=== PATIENT | female | born 2005 | race Caucasian/White ===

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

== ENCOUNTER → 2023-06-25 | Outpatient (REF) | payer BC ==
[~2023-06-25] MED LIST changes: +COLA100C5 PO; +IBUP80TA PO; +OXYC1TAB23 PO
== END ==
LOC: M LAB REF 16:24
PROVIDERS: ATTEND Student in an Organized Health Care Education/Training Program
DX: R30.0 Dysuria (principal)

== ENCOUNTER → 2023-11-01 | Outpatient (CLI) | payer BC, OTHER ==
[2023-11-01 13:54] LABS: HEMATOCRIT 39.8 % (36.0-47.0); HEMOGLOBIN 13.6 g/dl (12.0-15.5); MEAN CORPUSCULAR HGB CONC 34.2 g/dl (32.0-36.5); MEAN CORPUSCULAR VOLUME 93.6 fl (80.0-96.0); PLATELET COUNT, AUTOMATED 334 10^3/uL (150-450); RED BLOOD COUNT 4.25 10^6/uL (4.00-5.40); WHITE BLOOD COUNT 8.8 10^3/uL (4.0-10.0)
[2023-11-01 14:04] LABS: TOTAL PROTEIN,RANDOM URINE 27.8 MG/DL (0.0-14.0)
[2023-11-01 14:06] LABS: URIC ACID 4.3 MG/DL (3.1-7.8)
[2023-11-01 14:09] LABS: CREATININE,RANDOM URINE 219.3 MG/DL; LDH LACTATE DEHYDROGENASE 141 U/L (120-246)
[2023-11-01 14:10] LABS: ALT/SGPT 17 U/L (7.0-40); AST/SGOT 12 U/L (<34); BILIRUBIN,TOTAL 0.4 MG/DL (0.3-1.2); CREATININE FOR GFR 0.49 MG/DL (0.55-1.30)
[2023-11-01 14:42] LABS: HIV 1&2 SCREEN NEGATIVE (NEGATIVE)
[2023-11-01 14:51] LABS: HEPATITIS C VIRUS ABY INDEX 0.03 INDEX (<0.8)
== END ==
LOC: M PLALAB 11:22
PROVIDERS: ATTEND Advanced Practice Midwife
DX: Z34.81 Encounter for supervision of other normal pregnancy, first trimester (principal)

== ENCOUNTER → 2023-11-22 | Outpatient (CLI) | payer BC, OTHER | LOC: M PLALAB 09:30 | PROVIDERS: ATTEND Advanced Practice Midwife | DX: Z34.92 Encounter for supervision of normal pregnancy, unspecified, second trimester (principal) ==

== ENCOUNTER → 2023-12-20 | Outpatient (REF) | payer BC, OTHER ==
[~2023-12-20] MED LIST changes: +LABE100T40 PO; -LABE100T71 PO
== END ==
LOC: M SFHCWAGY 10:06
PROVIDERS: ATTEND Advanced Practice Midwife
DX: Z34.82 Encounter for supervision of other normal pregnancy, second trimester (principal)

== ENCOUNTER → 2023-12-31 | Outpatient (CLI) | payer BC, OTHER | LOC: M WHC 13:40 | PROVIDERS: ATTEND Advanced Practice Midwife | DX: Z34.92 Encounter for supervision of normal pregnancy, unspecified, second trimester (principal) ==

== ENCOUNTER → 2024-01-08 | Outpatient (REF) | payer BC, OTHER ==
[2024-01-08 17:10] LABS: APPEARANCE, URINE CLEAR (CLEAR); BACTERIA, URINE AUTO 2+ (NEGATIVE); BILIRUBIN, URINE AUTO NEGATIVE (NEGATIVE); BLOOD, URINE BLOOD NEGATIVE (NEGATIVE); COLOR, URINE STRAW (YELLOW); GLUCOSE, URINE (UA) AUTO NEGATIVE (NEGATIVE); KETONE, URINE AUTO NEGATIVE (NEGATIVE); LEUKOCYTE ESTERASE, URINE AUTO NEGATIVE (NEGATIVE); NITRITE, URINE AUTO NEGATIVE (NEGATIVE); PROTEIN, URINE AUTO NEGATIVE (NEGATIVE); RBC, URINE AUTO 0 /HPF (0-3); SPECIFIC GRAVITY URINE AUTO 1.005 (1.002-1.035); SQUAMOUS EPITHELIAL CELL UR AU 3 /HPF (0-6); UROBILINOGEN, URINE AUTO 0.2 mg/dL (0.0-2.0); WBC, URINE AUTO 0 /HPF (0-3)
== END ==
LOC: M LAB REF 16:32
PROVIDERS: ATTEND Physician Assistant
DX: N39.0 Urinary tract infection, site not specified (principal)

== ENCOUNTER → 2024-02-11 | Outpatient (CLI) | payer BC, OTHER | LOC: M WHC 07:41 | PROVIDERS: ATTEND Obstetrics & Gynecology | DX: O34.211 Maternal care for low transverse scar from previous cesarean delivery (principal) ==

== ENCOUNTER → 2024-02-19 | Outpatient (CLI) | payer BC, OTHER ==
[2024-02-19 13:47] LABS: HEMATOCRIT 33.6 % (36.0-47.0); HEMOGLOBIN 11.1 g/dl (12.0-15.5); MEAN CORPUSCULAR HEMOGLOBIN 32.4 pg (27.0-33.0); PLATELET COUNT, AUTOMATED 273 10^3/uL (150-450); RED BLOOD COUNT 3.43 10^6/uL (4.00-5.40)
[2024-02-19 15:15] LABS: GC DNA AMPLIFICATION NEGATIVE (NEGATIVE)
== END ==
LOC: M PLALAB 08:55
PROVIDERS: ATTEND Obstetrics & Gynecology
DX: O34.211 Maternal care for low transverse scar from previous cesarean delivery (principal)

== ENCOUNTER 2024-03-05 13:38 | Outpatient (CLI) | payer BC, OTHER ==
[~2024-03-05] VITALS: Ht 165.1 cm; Wt 102.9 kg
[2024-03-05 13:55] VITALS: BP 132/73
[2024-03-05] MEDS ORDERED: TUMS500C PO (13:58)
[2024-03-05] MEDS ORDERED: ASPI81CH33 PO (13:58)
[2024-03-05] MEDS ORDERED: ACET500P3 PO (13:58)
[2024-03-05 14:35] LABS: HEMATOCRIT 30.7 % (36.0-47.0); HEMOGLOBIN 10.5 g/dl (12.0-15.5); MEAN CORPUSCULAR HEMOGLOBIN 32.2 pg (27.0-33.0); MEAN CORPUSCULAR HGB CONC 34.2 g/dl (32.0-36.5); MEAN CORPUSCULAR VOLUME 94.2 fl (80.0-96.0); PLATELET COUNT, AUTOMATED 256 10^3/uL (150-450); RED BLOOD COUNT 3.26 10^6/uL (4.00-5.40); WHITE BLOOD COUNT 7.8 10^3/uL (4.0-10.0)
[2024-03-05 14:59] LABS: TOTAL PROTEIN,RANDOM URINE 10.2 MG/DL (0.0-14.0)
[2024-03-05 15:02] LABS: LIPASE 37 U/L (12-53)
[2024-03-05 15:03] LABS: AMYLASE 57 U/L (30-118)
[2024-03-05 15:04] LABS: CREATININE,RANDOM URINE 50.3 MG/DL
[2024-03-05 15:04] LABS: ALBUMIN 2.7 G/DL (3.2-5.2); ALKALINE PHOSPHATASE 96 U/L (46-116); ALT/SGPT 14 U/L (7.0-40); AST/SGOT 9 U/L (<34); BILIRUBIN,TOTAL 0.2 MG/DL (0.3-1.2); BLOOD UREA NITROGEN 8 MG/DL (9-23); CALCIUM LEVEL 8.4 MG/DL (8.5-10.1); CARBON DIOXIDE LEVEL 23 MMOL/L (20-31); CHLORIDE LEVEL 109 MMOL/L (98-107); CREATININE FOR GFR 0.47 MG/DL (0.55-1.30); GLUCOSE, FASTING 85 MG/DL (60-100); POTASSIUM SERUM 3.3 MMOL/L (3.5-5.1); SODIUM LEVEL 140 MMOL/L (136-145)
== END 2024-03-05 15:25 | disposition home or self-care (01) ==
LOC: M LDO 13:38
PROVIDERS: ATTEND Advanced Practice Midwife
DX: O26.893 Other specified pregnancy related conditions, third trimester (principal); O34.219 Maternal care for unspecified type scar from previous cesarean delivery; R10.11 Right upper quadrant pain; Z87.59 Personal history of other complications of pregnancy, childbirth and the puerperium; Z86.32 Personal history of gestational diabetes; Z3A.29 29 weeks gestation of pregnancy
CPT/HCPCS: 36415; 59025; 80053; 82150; 82570; 83690; 84156; 85027; G0463

== ENCOUNTER 2024-04-15 10:37 | Emergency (ER) | payer BC, OTHER ==
[2022-08-16 06:00] VITALS: O2SAT 98
[~2024-04-15 10:37] MED LIST changes: +ACET500P3 PO; +ASPI81CH33 PO; +ONDA-282 PO; -ONDA4TAB6 PO; +TUMS500C PO
[2024-04-15 10:38] VITALS: BP 173/93; TEMP 97.8
[2024-04-15] MEDS ORDERED: ACE65ERTAB PO (10:46)
== END 2024-04-15 10:47 | disposition admitted as inpatient to this hospital (09) ==
LOC: M ED 10:37
DX: Z53.21 Procedure and treatment not carried out due to patient leaving prior to being seen by health care provider (principal)

== ENCOUNTER 2024-04-15 11:05 | Outpatient (CLI) | payer BC, OTHER ==
[~2024-04-15] VITALS: Ht 165.1 cm; Wt 104.8 kg
[~2024-04-15 11:05] MED LIST changes: +ACE65ERTAB PO
[2024-04-15 11:32] VITALS: BP 131/83
[2024-04-15 13:01] VITALS: BP 112/62
[2024-04-15] MEDS ORDERED: HOME MED LIST COMPLETE! XX SCH (13:25)
[2024-04-15 13:26] LABS: HEMATOCRIT 28.5 % (36.0-47.0); HEMOGLOBIN 9.7 g/dl (12.0-15.5); MEAN CORPUSCULAR HEMOGLOBIN 32.4 pg (27.0-33.0); MEAN CORPUSCULAR VOLUME 95.3 fl (80.0-96.0); PLATELET COUNT, AUTOMATED 239 10^3/uL (150-450); RED BLOOD COUNT 2.99 10^6/uL (4.00-5.40); WHITE BLOOD COUNT 8.4 10^3/uL (4.0-10.0)
[2024-04-15 13:37] LABS: TOTAL PROTEIN,RANDOM URINE 23.4 MG/DL (0.0-14.0)
[2024-04-15 13:43] LABS: CREATININE,RANDOM URINE 77.6 MG/DL
[2024-04-15] MEDS: diphenhydrAMINE 25MG CAP PO ONE (13:55)
[2024-04-15] MEDS: METOCLOPRAMIDE 10MG TAB PO ONE (13:55)
[2024-04-15 14:12] VITALS: BP 116/63
[2024-04-15 14:21] LABS: ALT/SGPT 12 U/L (7.0-40); AST/SGOT 9 U/L (<34); BILIRUBIN,TOTAL 0.2 MG/DL (0.3-1.2); CREATININE FOR GFR 0.47 MG/DL (0.55-1.30); LDH LACTATE DEHYDROGENASE 145 U/L (120-246)
[2024-04-15 14:40] VITALS: BP 126/76
[2024-04-15 14:56] VITALS: BP 137/86
== END 2024-04-15 15:15 | disposition home or self-care (01) ==
LOC: M LDO 11:05
PROVIDERS: ATTEND Obstetrics & Gynecology
DX: O26.893 Other specified pregnancy related conditions, third trimester (principal); O34.219 Maternal care for unspecified type scar from previous cesarean delivery; R51.9 Headache, unspecified; R10.11 Right upper quadrant pain; Z3A.35 35 weeks gestation of pregnancy; Z88.1 Allergy status to other antibiotic agents; Z88.2 Allergy status to sulfonamides; Z86.32 Personal history of gestational diabetes; Z87.59 Personal history of other complications of pregnancy, childbirth and the puerperium
CPT/HCPCS: 36415; 59025; 82247; 82570; 83615; 84156; 84450; 84460; 84550; 85027; G0463

== ENCOUNTER 2024-04-16 14:11 | Outpatient (CLI) | payer BC, OTHER ==
[~2024-04-16] VITALS: Ht 165.1 cm; Wt 105.1 kg
[2024-04-16] VITALS (8 sets, daily range): BP systolic 122–141; BP diastolic 72–88
[2024-04-16] MEDS ORDERED: HOME MED LIST COMPLETE! XX SCH (14:25)
[2024-04-16 15:07] LABS: TOTAL PROTEIN,RANDOM URINE 12.2 MG/DL (0.0-14.0)
[2024-04-16] MEDS: diphenhydrAMINE 50MG CAP PO ONE (15:07)
[2024-04-16] MEDS: METOCLOPRAMIDE 10MG TAB PO ONE (15:07)
[2024-04-16] MEDS: BETAMETHASONE SOLUSPAN 6MG/ML 5ML VIAL IM SCH (15:07)
[2024-04-16 15:10] LABS: HEMATOCRIT 30.5 % (36.0-47.0); HEMOGLOBIN 10.3 g/dl (12.0-15.5); MEAN CORPUSCULAR HEMOGLOBIN 32.3 pg (27.0-33.0); MEAN CORPUSCULAR HGB CONC 33.8 g/dl (32.0-36.5); MEAN CORPUSCULAR VOLUME 95.6 fl (80.0-96.0); PLATELET COUNT, AUTOMATED 235 10^3/uL (150-450); RED BLOOD COUNT 3.19 10^6/uL (4.00-5.40); WHITE BLOOD COUNT 9.2 10^3/uL (4.0-10.0)
[2024-04-16 15:12] LABS: CREATININE,RANDOM URINE 43.1 MG/DL
[2024-04-16 15:34] LABS: URIC ACID 4.1 MG/DL (3.1-7.8)
[2024-04-16 15:36] LABS: LDH LACTATE DEHYDROGENASE 155 U/L (120-246)
[2024-04-16 15:37] LABS: ALT/SGPT 11 U/L (7.0-40); AST/SGOT 8 U/L (<34); BILIRUBIN,TOTAL 0.3 MG/DL (0.3-1.2); CREATININE FOR GFR 0.52 MG/DL (0.55-1.30)
[2024-04-16] MEDS: FIORICET TAB PO ONE (15:58)
== END 2024-04-16 16:30 | disposition home or self-care (01) ==
LOC: M LDO 14:11
PROVIDERS: ATTEND Advanced Practice Midwife
DX: O13.3 Gestational [pregnancy-induced] hypertension without significant proteinuria, third trimester (principal); O26.893 Other specified pregnancy related conditions, third trimester; R51.0 Headache with orthostatic component, not elsewhere classified; Z87.59 Personal history of other complications of pregnancy, childbirth and the puerperium; Z3A.35 35 weeks gestation of pregnancy; Z88.1 Allergy status to other antibiotic agents; Z88.2 Allergy status to sulfonamides
CPT/HCPCS: 36415; 59025; 82247; 82570; 83615; 84156; 84450; 84460; 84550; 85027; 96372; G0463; J0702

== ENCOUNTER 2024-04-17 15:01 | Outpatient (CLI) | payer BC, OTHER ==
[~2024-04-17] VITALS: Ht 165.1 cm; Wt 105.5 kg
[2024-04-17] MEDS ORDERED: HOME MED LIST COMPLETE! XX SCH (15:15)
[2024-04-17 15:16] VITALS: BP 131/84
[2024-04-17] MEDS: BETAMETHASONE SOLUSPAN 6MG/ML 5ML VIAL IM ONE (15:30)
[2024-04-17 15:47] VITALS: BP 140/86
[2024-04-17 16:04] VITALS: BP 153/95
== END 2024-04-17 16:15 | disposition home or self-care (01) ==
LOC: M LDO 15:01
PROVIDERS: ATTEND Specialist
DX: O13.3 Gestational [pregnancy-induced] hypertension without significant proteinuria, third trimester (principal); Z3A.35 35 weeks gestation of pregnancy
CPT/HCPCS: 96372; G0463; J0702

== ENCOUNTER → 2024-04-21 | Outpatient (REF) | payer BC, OTHER | LOC: M SFHCWAGY 12:42 | PROVIDERS: ATTEND Specialist | DX: Z34.83 Encounter for supervision of other normal pregnancy, third trimester (principal) ==

== ENCOUNTER → 2024-04-21 | Outpatient (CLI) | payer BC, OTHER ==
[2024-04-21 13:39] LABS: HEMATOCRIT 31.3 % (36.0-47.0); HEMOGLOBIN 10.4 g/dl (12.0-15.5); MEAN CORPUSCULAR HGB CONC 33.2 g/dl (32.0-36.5); MEAN CORPUSCULAR VOLUME 96.3 fl (80.0-96.0); PLATELET COUNT, AUTOMATED 277 10^3/uL (150-450); RED BLOOD COUNT 3.25 10^6/uL (4.00-5.40); WHITE BLOOD COUNT 10.5 10^3/uL (4.0-10.0)
[2024-04-21 14:11] LABS: URIC ACID 4.3 MG/DL (3.1-7.8)
[2024-04-21 14:13] LABS: LDH LACTATE DEHYDROGENASE 146 U/L (120-246)
[2024-04-21 14:14] LABS: ALBUMIN 2.8 G/DL (3.2-5.2); ALKALINE PHOSPHATASE 116 U/L (46-116); ALT/SGPT 11 U/L (7.0-40); AST/SGOT < 8 U/L (<34); BILIRUBIN,TOTAL 0.2 MG/DL (0.3-1.2); BLOOD UREA NITROGEN 6 MG/DL (9-23); CALCIUM LEVEL 8.3 MG/DL (8.5-10.1); CARBON DIOXIDE LEVEL 25 MMOL/L (20-31); CHLORIDE LEVEL 108 MMOL/L (98-107); GLUCOSE, FASTING 93 MG/DL (60-100); POTASSIUM SERUM 3.6 MMOL/L (3.5-5.1); SODIUM LEVEL 140 MMOL/L (136-145); TOTAL PROTEIN 6.1 G/DL (5.7-8.2)
[2024-04-21 15:29] LABS: TOTAL PROTEIN,RANDOM URINE 11.1 MG/DL (0.0-14.0)
== END ==
LOC: M PLALAB 09:11
PROVIDERS: ATTEND Obstetrics & Gynecology
DX: O13.3 Gestational [pregnancy-induced] hypertension without significant proteinuria, third trimester (principal)

== ENCOUNTER → 2024-04-22 | Outpatient (CLI) | payer BC, OTHER ==
[~2024-04-22] VITALS: Ht 165.1 cm; Wt 105.0 kg
[2024-04-22] VITALS (7 sets, daily range): BP systolic 122–142; BP diastolic 59–96
[~2024-04-22] MED LIST changes: +ACETAMINOPHEN 500 MG TAB PO ONE; +DIPH-435 PO; +LR 1,000 ML IV ONE; +PERCOCET PO
[2024-04-22 21:04] LABS: TOTAL PROTEIN,RANDOM URINE 8.2 MG/DL (0.0-14.0)
[2024-04-22 21:09] LABS: CREATININE,RANDOM URINE 39.5 MG/DL
[2024-04-22 21:09] LABS: HEMATOCRIT 30.4 % (36.0-47.0); HEMOGLOBIN 10.5 g/dl (12.0-15.5); MEAN CORPUSCULAR HEMOGLOBIN 32.5 pg (27.0-33.0); MEAN CORPUSCULAR HGB CONC 34.5 g/dl (32.0-36.5); MEAN CORPUSCULAR VOLUME 94.1 fl (80.0-96.0); PLATELET COUNT, AUTOMATED 260 10^3/uL (150-450); RED BLOOD COUNT 3.23 10^6/uL (4.00-5.40); WHITE BLOOD COUNT 10.7 10^3/uL (4.0-10.0)
[2024-04-22 21:32] LABS: ALBUMIN 2.7 G/DL (3.2-5.2); ALKALINE PHOSPHATASE 117 U/L (46-116); ALT/SGPT 11 U/L (7.0-40); AST/SGOT 15 U/L (<34); BILIRUBIN,TOTAL 0.2 MG/DL (0.3-1.2); BLOOD UREA NITROGEN 9 MG/DL (9-23); CALCIUM LEVEL 9.1 MG/DL (8.5-10.1); CARBON DIOXIDE LEVEL 23 MMOL/L (20-31); CHLORIDE LEVEL 108 MMOL/L (98-107); CREATININE FOR GFR 0.48 MG/DL (0.55-1.30); GLUCOSE, FASTING 106 MG/DL (60-100); POTASSIUM SERUM 3.7 MMOL/L (3.5-5.1); SODIUM LEVEL 140 MMOL/L (136-145); TOTAL PROTEIN 6.1 G/DL (5.7-8.2)
[2024-04-22] MEDS: METOCLOPRAMIDE 10MG TAB PO ONE (22:04)
[2024-04-22] MEDS: diphenhydrAMINE 25MG CAP PO ONE (22:04)
== END ==
LOC: M LDO 20:07
PROVIDERS: ATTEND Obstetrics & Gynecology
DX: O26.893 Other specified pregnancy related conditions, third trimester (principal); O34.219 Maternal care for unspecified type scar from previous cesarean delivery; R51.0 Headache with orthostatic component, not elsewhere classified; Z3A.36 36 weeks gestation of pregnancy; Z88.1 Allergy status to other antibiotic agents; Z88.2 Allergy status to sulfonamides; Z87.59 Personal history of other complications of pregnancy, childbirth and the puerperium
CPT/HCPCS: 36415; 59025; 80053; 82570; 84156; 85027; 96374; 96376; G0463

== ENCOUNTER 2024-04-24 12:20 | Inpatient (IN) | payer BC, OTHER ==
[2024-04-24] VITALS (8 sets, daily range): BP systolic 133–142; BP diastolic 73–82; TEMP 97.3; O2SAT 97–98
[~2024-04-24] VITALS: Ht 165.1 cm; Wt 105.6 kg
[~2024-04-24 12:20] MED LIST changes: -ACETAMINOPHEN 500 MG TAB PO ONE; -DIPH-435 PO; -LR 1,000 ML IV ONE; -PERCOCET PO
[2024-04-24] MEDS ORDERED: DIPH-435 PO (12:50)
[2024-04-24] MEDS ORDERED: TRANEXAMIC ACID INJection 1,000 MG in NS 100 ML IV PRN (13:00)
[2024-04-24 13:16] LABS: HEMATOCRIT 30.3 % (36.0-47.0); HEMOGLOBIN 10.4 g/dl (12.0-15.5); MEAN CORPUSCULAR HEMOGLOBIN 32.3 pg (27.0-33.0); MEAN CORPUSCULAR HGB CONC 34.3 g/dl (32.0-36.5); MEAN CORPUSCULAR VOLUME 94.1 fl (80.0-96.0); PLATELET COUNT, AUTOMATED 262 10^3/uL (150-450); RED BLOOD COUNT 3.22 10^6/uL (4.00-5.40); WHITE BLOOD COUNT 9.8 10^3/uL (4.0-10.0)
[2024-04-24] MEDS: BICITRA 30ML SOLN UDC PO ONE (13:23)
[2024-04-24] MEDS: ceFAZolin SOD 2 GM in IV 1 EA IV ONE (13:23)
[2024-04-24] MEDS ORDERED: HOME MED LIST COMPLETE! XX SCH (13:55)
[2024-04-24 14:14] LABS: HEPATITIS C VIRUS ABY INDEX < 0.02 INDEX (<0.8)
[2024-04-24] MEDS ORDERED: MORPHINE PRES-FREE INJ 10 MG/10 ML VIAL As Ordered ONE (14:18)
[2024-04-24] MEDS ORDERED: OXYTOCIN INJ 10UNITS/ML 1ML VIAL As Ordered ONE (14:20)
[2024-04-24] MEDS ORDERED: ePHEDrine SULFATE 25 MG/5 ML(5MG/ML) SYRINGE As Ordered ONE (14:23)
[2024-04-24] MEDS ORDERED: PHENYLephrine 500MCG 5ML (100MCG/ML) SYRINGE As Ordered ONE (14:23)
[2024-04-24] MEDS ORDERED: METOCLOPRAMIDE INJ 10MG/2ML VIAL IV PRN (14:25)
[2024-04-24] MEDS ORDERED: fentaNYL 100 MCG/2 ML INJECTION IV PRN ×2 (14:25→15:30)
[2024-04-24] MEDS ORDERED: NALOXONE INJ 0.4MG/1ML VIAL IV PRN ×2 (14:25)
[2024-04-24] MEDS ORDERED: **NOTE PATIENT COMMENT** MISC XX SCH (14:25)
[2024-04-24] MEDS ORDERED: diphenhydrAMINE 50MG/ML VIAL IV PRN (14:25)
[2024-04-24] MEDS: SLF 3 ML SYR IV SCH (14:25)
[2024-04-24] MEDS ORDERED: ONDANSETRON 4MG 2ML VIAL IV PRN ×3 (14:25→15:30)
[2024-04-24] MEDS ORDERED: SIMETHICONE 80MG CHEW TAB PO PRN (14:35)
[2024-04-24] MEDS ORDERED: CALCIUM CARBONATE 500 MG CHEW U/D PO PRN (14:35)
[2024-04-24] MEDS ORDERED: PERCOCET 5MG/325MG TAB PO PRN (14:35)
[2024-04-24] MEDS ORDERED: RHO(D) IMMUNE GLOBULIN/MALTOSE 500MCG(2500IU)/2.2ML VIAL (WINRHO) IM SCH (14:35)
[2024-04-24] MEDS ORDERED: MOM 30ML SUSPENSION UDC PO PRN (14:35)
[2024-04-24 14:49] LABS: TOTAL PROTEIN,RANDOM URINE 6.7 MG/DL (0.0-14.0)
[2024-04-24] MEDS ORDERED: KETOROLAC 60MG 2ML VIAL As Ordered ONE (14:57)
[2024-04-24] MEDS ORDERED: ONDANSETRON 4MG 2ML VIAL As Ordered ONE (15:10)
[2024-04-24 15:14] LABS: CORD GAS ABE A -0.2; CORD GAS ABE V -1.6; CORD GAS HCO3 A 25.4 MMOL/L; CORD GAS HCO3 V 26.3 MMOL/L; CORD GAS O2 SAT A 82.8 %; CORD GAS O2 SAT V 62.8 %; CORD GAS PCO2 A 45.2 mmHg; CORD GAS PCO2 V 58.4 mmHg; CORD GAS PH A 7.368 UNITS; CORD GAS PH V 7.272 UNITS; CORD GAS PO2 V 28.3 mmHg; CORD GAS SBC V 22.4 MMOL/L; CORD GAS TCO2 A 26.8 MMOL/L; CORD GAS TCO2 V 28.1 MMOL/L
[2024-04-24] MEDS ORDERED: MEPERIDINE 25 MG/ML 1ML VIAL IV PRN (15:30)
[2024-04-24] MEDS ORDERED: OXYTOCIN 30UNITS IN 0.9% NaCl 500ML IV BAG As Ordered ONE (15:45)
[2024-04-24] MEDS: LR 1,000 ML IV SCH (15:47)
[2024-04-24] MEDS: OXYTOCIN DRIP 30 UNITS in IV 1 EA IV SCH (15:47)
[2024-04-24 16:11] LABS: URIC ACID 4.4 MG/DL (3.1-7.8)
[2024-04-24 16:13] LABS: LDH LACTATE DEHYDROGENASE 149 U/L (120-246)
[2024-04-24 16:14] LABS: ALT/SGPT 11 U/L (7.0-40); AST/SGOT < 8 U/L (<34); BILIRUBIN,TOTAL 0.3 MG/DL (0.3-1.2); CREATININE FOR GFR 0.48 MG/DL (0.55-1.30)
[2024-04-24] MEDS ORDERED: HYDROMORPHONE HCL 0.5 MG/ 0.5 ML SYRINGE As Ordered ONE (16:23)
[2024-04-24] MEDS: HYDROMORPHONE HCL 0.5 MG/ 0.5 ML SYRINGE IV PRN (16:25)
[2024-04-24] MEDS ORDERED: oxyCODONE 5MG TAB As Ordered ONE (16:30)
[2024-04-24] MEDS: oxyCODONE 5MG TAB PO PRN (16:35)
[2024-04-24] MEDS: DOCUSATE SODIUM 100MG CAPSULE PO SCH (21:04)
[2024-04-24] MEDS: PERCOCET 5MG/325MG TAB PO PRN (21:07)
[2024-04-24] MEDS: KETOROLAC 30 MG/ML 1ML VIAL IV SCH (22:40)
[2024-04-25] MEDS ORDERED: DOCUSATE SODIUM 100MG CAPSULE As Ordered ONE (08:09)
[2024-04-25] MEDS ORDERED: PERCOCET 5MG/325MG TAB As Ordered ONE (08:47)
[2024-04-25] MEDS: FERROUS SULFATE 325MG TAB PO SCH (09:00)
[2024-04-25] MEDS: PRENATAL VITAMINS CHEWABLE TABLET PO SCH (09:00)
[2024-04-25] MEDS ORDERED: KETOROLAC 30 MG/ML 1ML VIAL As Ordered ONE (09:45)
[2024-04-25 13:52] VITALS: BP 141/86; O2SAT 97
[2024-04-25] MEDS: IBUPROFEN 800 MG TAB PO SCH (17:44)
[2024-04-25 18:00] VITALS: BP 140/91; O2SAT 96
[2024-04-25 22:00] VITALS: BP 135/82; O2SAT 100
[2024-04-26 02:00] VITALS: BP 137/84; O2SAT 97
[2024-04-26 05:34] VITALS: BP 128/72; O2SAT 97
[2024-04-26] MEDS: MEASLES,MUMPS,RUBELLA VACCINE INJ (MMR-II) SC.IMMUN ONE (07:48)
[2024-04-26] MEDS ORDERED: IBUP80TA PO (09:52)
[2024-04-26] MEDS ORDERED: PERCOCET PO (09:52)
[2024-04-26] MEDS ORDERED: COLA100C5 PO (09:52)
[2024-04-26 10:11] VITALS: BP 142/86; O2SAT 97
== END 2024-04-26 10:35 | disposition home or self-care (01) | DRG 540 ==
LOC: M LDO 12:20 → M LDI 12:50 → M OBS 17:08
PROVIDERS: ADMIT Obstetrics & Gynecology; ATTEND Obstetrics & Gynecology
PROC: 10D00Z1 Extraction of Products of Conception, Low, Open Approach (ICD-10-PCS; principal; 2024-04-24 15:00)
DX: O14.94 Unspecified pre-eclampsia, complicating childbirth (principal); Z3A.35 35 weeks gestation of pregnancy; Z88.2 Allergy status to sulfonamides; Z88.8 Allergy status to other drugs, medicaments and biological substances; Z79.82 Long term (current) use of aspirin; O32.1XX0 Maternal care for breech presentation, not applicable or unspecified; Z37.0 Single live birth

== ENCOUNTER → 2024-08-22 | Outpatient (REF) | payer BC, OTHER ==
[~2024-08-22] MED LIST changes: +DIPH-435 PO; +PERCOCET PO
== END ==
LOC: M PLALAB 10:22
PROVIDERS: ATTEND Obstetrics & Gynecology
DX: Z01.419 Encounter for gynecological examination (general) (routine) without abnormal findings (principal)